=== PATIENT | male | born 1975 | race African-American/Black ===

== ENCOUNTER 2021-03-27 06:11 | Emergency (ER) | payer OTHER ==
[~2021-03-27] VITALS: Ht 185.4 cm; Wt 80.6 kg
--- NOTE | 2021-03-27 06:18 | NUR ---
EKG DONE IN TRIAGE.
--- NOTE | 2021-03-27 06:37 | NUR ---
PT AMBULATED TO ROOM 18. NADN. VSS. FLORES AT BEDSIDE UPON ASSESSMENT. PT REPORTS NEW ONSET DIZZINESS/VERTIGO WHILE LAYING IN BED. "FELT LIKE I WAS GOING TO PASS OUT". HEYDI MARIE
--- NOTE | 2021-03-27 06:44 | NUR ---
PT SWABBED FOR COVID 19 AND WALKED TO LAB
--- NOTE | 2021-03-27 06:52 | NUR ---
REPORT GIVEN TO DALLIN HUMPHREY. CARE TRANSFERED.
[2021-03-27 07:08] LABS: BASOPHILS % (AUTO) 1 % (0-1); EOSINOPHILS % (AUTO) 3 % (1-7); LYMPHOCYTES % (AUTO) 40 % (22-44); MEAN CORPUSCULAR HEMOGLOBIN 32.6 pg (27.5-34.5); MEAN CORPUSCULAR HGB CONC 33.9 g/dL (33.2-36.2); MEAN PLATELET VOLUME 7.7 fL (7.4-10.4); MONOCYTES % (AUTO) 13 % (2-9); NEUTROPHILS % (AUTO) 44 % (42-75); PLATELET COUNT 230 x10^3/uL (130-400); RED BLOOD COUNT 5.56 x10^6/uL (4.38-5.82); RED CELL DISTRIBUTION WIDTH 14.6 % (9.4-14.8)
[2021-03-27 07:18] LABS: ALBUMIN 4.1 g/dL (3.4-5.0); ANION GAP 11 mmol/L (5-15); CALCIUM 8.6 mg/dL (8.5-10.1); CHLORIDE 106 mmol/L (98-107)
[2021-03-27 07:27] LABS: ALANINE AMINOTRANSFERASE 39 U/L (12-78); ALKALINE PHOSPHATASE 84 U/L (45-117); BILIRUBIN,TOTAL 0.9 mg/dL (0.2-1.0); CREATININE 1.08 mg/dL (0.7-1.3); TOTAL PROTEIN 7.9 g/dL (6.4-8.2)
--- NOTE | 2021-03-27 07:40 | NUR ---
pt resting on bed with eyes open, watching tv. nad. vss. rails up and call light within reach.
[2021-03-27 08:15] VITALS: BP 124/87
--- NOTE | 2021-03-27 08:17 | NUR ---
PT REC'VD DISCHARGE INSTRUCTIONS AND EDUCATION. PT HAD NO FURTHER QUESTIONS.
--- NOTE | 2021-03-27 08:23 | NUR ---
PT DENYING DIZZINESS AT THIS TIME. PT AMBULATED TO MT AREA, STEADY GAIT.
== END 2021-03-27 08:28 | disposition home or self-care (01) ==
LOC: ED 08:25
DX: R42 Dizziness and giddiness (principal); Z20.822 Contact with and (suspected) exposure to COVID-19; R53.1 Weakness; R53.83 Other fatigue; R10.9 Unspecified abdominal pain; R94.31 Abnormal electrocardiogram [ECG] [EKG]; F17.200 Nicotine dependence, unspecified, uncomplicated
CPT/HCPCS: 36415; 71045; 80053; 84443; 85025; 93005; 99285; U0003; U0005